=== PATIENT | male | born 1950 | race Caucasian/White ===

== ENCOUNTER → 2016-09-07 | Outpatient (CLI) | payer OTHER | LOC: KOH-I 12:11 | DX: Z13.820 Encounter for screening for osteoporosis (principal); M81.0 Age-related osteoporosis without current pathological fracture | CPT/HCPCS: 77080 ==

== ENCOUNTER → 2021-12-23 | Outpatient (CLI) | payer MEDICARE, OTHER ==
[~2021-12-23] VITALS: Ht 175.3 cm; Wt 83.9 kg
[~2021-12-23] MED LIST: ALENDRONATE SOD70 MG PO; AMLODIPINE BESY10 MG PO; FLOMAX 0.4 MG0.4 MG PO; IBU600 MG PO; LEVOTHYROXINE50 MC1 PO; LOSARTAN POTASS50 MG PO; PREDNISONE 5 MG5 MG PO
[2021-12-23 11:00] LABS: HEMOGLOBIN 12.2 gm/dl (14.0-17.5); RED BLOOD COUNT 4.24 M/UL (4.20-5.50); WHITE BLOOD COUNT 7.5 K/UL (4.5-11.0)
[2021-12-23 11:30] LABS: BUN/CREATININE RATIO 20 (0-10)
== END ==
LOC: EDSTATUS 09:00 → OPSV2 09:00
PROVIDERS: Orthopaedic Surgery
DX: Z01.818 Encounter for other preprocedural examination (principal); M16.11 Unilateral primary osteoarthritis, right hip
CPT/HCPCS: 36415; 71046; 80048; 85025; 85652; 86140; 93005

== ENCOUNTER 2022-01-06 08:42 | Inpatient (IN) | payer MEDICARE, OTHER ==
[~2022-01-06] VITALS: Ht 172.7 cm; Wt 83.2 kg
[~2022-01-06 08:42] MED LIST changes: -LEVOTHYROXINE50 MC1 PO; +LEVOTHYROXINE50 MCG PO
[2022-01-06] MEDS ORDERED: PLAQUENIL 200200 MG PO (09:28)
[2022-01-06] MEDS ORDERED: ARTHRITIS PAIN150 GM TP (09:30)
[2022-01-06] MEDS ORDERED: CYCLOBENZAPRINE10 MG PO (09:30)
[2022-01-06] MEDS ORDERED: ZOFRAN 4 MG TAB4 MG PO (09:31)
[2022-01-06] MEDS ORDERED: OXYCODON-ACETA1 EAC1 PO (09:31)
[2022-01-06] MEDS ORDERED: ELIQUIS2.5 MG PO ×2 (10:29→10:40)
[2022-01-06 16:28] LABS: HEMOGLOBIN 8.5 gm/dl (14.0-17.5)
[2022-01-07 03:50] LABS: RED BLOOD COUNT 3.2 M/UL (4.20-5.50); WHITE BLOOD COUNT 10.9 K/UL (4.5-11.0)
[2022-01-08 03:59] LABS: HEMOGLOBIN 8.4 gm/dl (14.0-17.5); RED BLOOD COUNT 2.99 M/UL (4.20-5.50); WHITE BLOOD COUNT 12.1 K/UL (4.5-11.0)
[2022-01-08 04:30] LABS: BUN/CREATININE RATIO 22 (0-10)
[2022-01-09 06:59] LABS: HEMOGLOBIN 7.9 gm/dl (14.0-17.5); RED BLOOD COUNT 2.82 M/UL (4.20-5.50)
[2022-01-09 07:26] LABS: BUN/CREATININE RATIO 24 (0-10)
[2022-01-09] MEDS ORDERED: FERROUS SULFAT325 M2 PO (09:44)
== END 2022-01-09 14:08 | disposition home or self-care (01) | DRG 470 ==
LOC: OR 08:42 → CCU 13:40 → OR 14:15 → CCU 18:47 → OR 18:47 → CCU 01-07 17:15 → M/S 01-08 18:47
PROVIDERS: ADMIT Orthopaedic Surgery
PROC: 30233N1 Transfusion of Nonautologous Red Blood Cells into Peripheral Vein, Percutaneous Approach (ICD-10-PCS; 2022-01-06)
PROC: 0SR901A Replacement of Right Hip Joint with Metal Synthetic Substitute, Uncemented, Open Approach (ICD-10-PCS; principal; 2022-01-06 14:15)
DX: M16.11 Unilateral primary osteoarthritis, right hip (principal); D62 Acute posthemorrhagic anemia; N17.9 Acute kidney failure, unspecified; N40.0 Benign prostatic hyperplasia without lower urinary tract symptoms; E03.9 Hypothyroidism, unspecified; E66.9 Obesity, unspecified; I10 Essential (primary) hypertension; I95.9 Hypotension, unspecified; Z98.890 Other specified postprocedural states; Z88.8 Allergy status to other drugs, medicaments and biological substances; Z88.5 Allergy status to narcotic agent; Z88.6 Allergy status to analgesic agent; Z79.52 Long term (current) use of systemic steroids; Z82.49 Family history of ischemic heart disease and other diseases of the circulatory system; Z80.3 Family history of malignant neoplasm of breast; Z79.899 Other long term (current) drug therapy; Z68.27 Body mass index [BMI] 27.0-27.9, adult
CPT/HCPCS: 36415; 36430; 73502; 76000; 80048; 85014; 85018; 85027; 86850; 86900; 86901; 86920; 97110-GP-CQ; 97116; 97116-GP-CQ; 97162; 97166; 97530; 97535; C1713; C1776; J0690; J1100; J2001; J2274; J2370; J2405; J2704; J2710; J2930; J3010; J3370; J7030; J7050; P9016; P9045

== ENCOUNTER 2022-01-11 20:20 | Inpatient (IN) | payer MEDICARE, OTHER ==
[~2022-01-11] VITALS: Ht 175.3 cm; Wt 81.6 kg
[~2022-01-11 20:20] MED LIST changes: +ARTHRITIS PAIN150 GM TP; +CYCLOBENZAPRINE10 MG PO; +ELIQUIS2.5 MG PO; +FERROUS SULFAT325 M2 PO; +OXYCODON-ACETA1 EAC1 PO; +PLAQUENIL 200200 MG PO; +ZOFRAN 4 MG TAB4 MG PO
[2022-01-11 21:16] LABS: HEMOGLOBIN 8.7 gm/dl (14.0-17.5)
[2022-01-11 21:46] LABS: RED BLOOD COUNT 3.15 M/UL (4.20-5.50); WHITE BLOOD COUNT 10.2 K/UL (4.5-11.0)
[2022-01-12 03:50] LABS: HEMOGLOBIN 8.3 gm/dl (14.0-17.5); RED BLOOD COUNT 2.98 M/UL (4.20-5.50); WHITE BLOOD COUNT 8.5 K/UL (4.5-11.0)
[2022-01-12 04:45] LABS: BUN/CREATININE RATIO 29 (0-10)
[2022-01-13 05:26] LABS: HEMOGLOBIN 8.1 gm/dl (14.0-17.5); RED BLOOD COUNT 2.96 M/UL (4.20-5.50); WHITE BLOOD COUNT 6.9 K/UL (4.5-11.0)
[2022-01-13 06:00] LABS: BUN/CREATININE RATIO 21 (0-10)
[2022-01-14 06:35] LABS: HEMOGLOBIN 7.5 gm/dl (14.0-17.5); RED BLOOD COUNT 2.73 M/UL (4.20-5.50); WHITE BLOOD COUNT 5.9 K/UL (4.5-11.0)
[2022-01-14 07:21] LABS: BUN/CREATININE RATIO 18 (0-10)
[2022-01-14] MEDS ORDERED: LEVOFLOXACIN500 MG PO (14:02)
[2022-01-14] MEDS ORDERED: AMLODIPINE BESYL5 MG PO (14:02)
[2022-01-14] MEDS ORDERED: POLYETHYLENE GL17 GM PO (14:02)
[2022-01-14] MEDS ORDERED: DOCUSATE SODIU100 MG PO (14:02)
== END 2022-01-14 18:57 | disposition home health service (06) | DRG 193 ==
LOC: ER1 20:20 → MED SURG 4 22:55 → CDU 22:55 → MED SURG 4 01-12 12:20
PROVIDERS: Internal Medicine; Physician Assistant; ADMIT Internal Medicine
DX: J18.9 Pneumonia, unspecified organism (principal); J96.21 Acute and chronic respiratory failure with hypoxia; N17.9 Acute kidney failure, unspecified; E87.1 Hypo-osmolality and hyponatremia; J98.11 Atelectasis; I10 Essential (primary) hypertension; M06.9 Rheumatoid arthritis, unspecified; Z96.641 Presence of right artificial hip joint; N40.0 Benign prostatic hyperplasia without lower urinary tract symptoms; E03.9 Hypothyroidism, unspecified; E86.0 Dehydration; D64.9 Anemia, unspecified; Z90.89 Acquired absence of other organs; Z98.890 Other specified postprocedural states; Z82.49 Family history of ischemic heart disease and other diseases of the circulatory system; Z80.3 Family history of malignant neoplasm of breast; Z79.899 Other long term (current) drug therapy; Z79.01 Long term (current) use of anticoagulants
CPT/HCPCS: 0240U; 36600; 71045; 71275; 73502; 80048; 80053; 80202; 82550; 82553; 82803; 83605; 83735; 83880; 84100; 84484; 85025; 85027; 85379; 85652; 86140; 86850; 86900; 86901; 87040; 87081; 92526; 92610; 94640; 94664; 94760; 96365; 96366; 96375; 97110; 97116-GP-CQ; 97161; 97166; 97530; 99285; J0456; J0692; J0696; J3370; J7030; J7070; Q9967